=== PATIENT | male | born 1965 | race African-American/Black ===

== ENCOUNTER 2017-05-07 08:32 | Emergency (ER) | payer MEDICAID ==
[~2017-05-07] VITALS: Ht 185.4 cm; Wt 166.0 kg
[~2017-05-07 08:32] MED LIST: ATOR-2 PO; CARV3.1242 PO; FURO40TA5 PO; HYDROCODONE PO; LEVO100T PO; LISINOP PO; POTA10CA42 PO
[2017-05-07] MEDS ORDERED: ASPI-986 PO (08:40)
[2017-05-07] MEDS ORDERED: GABA-529 PO (08:40)
[2017-05-07] MEDS ORDERED: GLIM1TAB2 PO (08:40)
[2017-05-07] MEDS ORDERED: METOLAZONE (08:40)
[2017-05-07] MEDS ORDERED: MORPHINE SULFATE 4 MG/ML CPJ (NOT FOR IM USE) IV STA (09:07)
[2017-05-07 09:20] LABS: HEMATOCRIT. 33.4 % (42.0-52.0); HEMOGLOBIN. 10.9 g/dL (14.0-18.0); MEAN CORPUSCULAR HEMOGLOBIN 24.9 pg (28.0-32.0); MEAN CORPUSCULAR VOLUME 76.6 fL (80.0-94.0); MEAN PLATELET VOLUME 7.8 fl (7.4-10.4); PLATELET 289 x1000/uL (130-400); RED BLOOD CELL COUNT 4.36 mill/uL (4.7-6.1); RED CELL DISTRIBUTION WIDTH 15.7 % (11.6-14.6)
[2017-05-07 09:27] LABS: INR 1.1; PROTHROMBIN TIME 11.8 sec
[2017-05-07 09:37] LABS: CARBON DIOXIDE 33 mEq/L (21-32); CHLORIDE 101 mEq/L (98-107)
[2017-05-07 10:00] LABS: PLATELET ESTIMATE NORMAL
[2017-05-07 11:00] VITALS: BP 134/96
[2017-05-07] MEDS ORDERED: KETOROLAC 30MG/ML VIAL IV ONE (11:30)
[2017-05-07 11:45] LABS: CLARITY URINE CLEAR (CLEAR); COLOR URINE YELLOW (YELLOW); GLUCOSE URINE NEGATIVE (NEGATIVE); KETONES URINE NEGATIVE (NEGATIVE); LEUKOCYTE ESTERASE URINE NEGATIVE (NEGATIVE); NITRITE URINE NEGATIVE (NEGATIVE); OCCULT BLOOD URINE NEGATIVE (NEGATIVE); PROTEIN URINE NEGATIVE (NEGATIVE); SPECIFIC GRAVITY URINE 1.012 (1.005-1.030)
[2017-05-07 12:10] LABS: *AMPHETAMINES SCREEN URINE NEGATIVE (NEGATIVE); *BARBITURATES SCREEN URINE NEGATIVE (NEGATIVE); *BENZODIAZEPINES SCREEN URINE NEGATIVE (NEGATIVE); *COCAINE SCREEN URINE NEGATIVE (NEGATIVE); CANNABINOID URINE SCREEN NEGATIVE (NEGATIVE); METHADONE URINE SCREEN NEGATIVE (NEGATIVE); OPIATES URINE SCREEN PRESUMTIVE POSITIVE (NEGATIVE); PHENCYCLIDINE URINE SCREEN NEGATIVE (NEGATIVE)
[2017-05-07] MEDS ORDERED: MORPHINE SULFATE 4 MG/ML CPJ (NOT FOR IM USE) IV ONE (12:45)
== END 2017-05-07 14:05 | disposition home or self-care (01) ==
LOC: ER 08:34
DX: R60.9 Edema, unspecified (principal); I50.9 Heart failure, unspecified; I13.0 Hypertensive heart and chronic kidney disease with heart failure and stage 1 through stage 4 chronic kidney disease, or unspecified chronic kidney disease; N18.9 Chronic kidney disease, unspecified; M25.572 Pain in left ankle and joints of left foot; M25.571 Pain in right ankle and joints of right foot; Z79.82 Long term (current) use of aspirin
CPT/HCPCS: 36415; 71010; 80053; 80305; 81003; 82962; 83880; 85025; 85610; 96374; 96375; 96376; 99285; J1885; J2270; Z7610